=== PATIENT | male | born 1955 | race Caucasian/White ===

== ENCOUNTER 2023-01-27 10:01 | Emergency (ER) | payer MEDICARE, OTHER, SELFPAY ==
[2023-01-27 10:02] VITALS: BP 147/96; PULSE 81; RESP 16; TEMP 36.7; O2SAT 98; BMI 32.1
--- NOTE | 2023-01-27 10:07 | HMH.EDGENADL ---
Discharge Plan Disposition Patient Disposition: Home, Self-Care Prescriptions Prescriptions: New ibuprofen 800 mg tablet 800 mg PO TID PRN (Reason: pain) 7 Days Qty: 20 0RF cyclobenzaprine 5 mg tablet 5 mg PO TID PRN (Reason: muscle spasm) 5 Days Qty: 15 0RF Referrals Follow up/Referrals: Elan Ya MD [Primary Care Provider] - See instructions Activity Restrictions/Add. Instructions Additional Instructions/Restrictions: Your evaluation and work-up for your right lower quadrant abdominal pain was unremarkable including a normal CAT scan normal blood and urine analysis. It is possible that this is musculoskeletal strain will treat with ibuprofen and Flexeril however there remains diagnostic uncertainty no emergent medical condition was identified but please follow with your primary care doctor return with any worsening symptoms as instructed. Clinical Impressions Clinical Impression: Nonspecific abdominal pain Instructions Patient Instructions: DI for Acute Abdominal Pain Discharge ED Provider: Ye Tran General Adult HPI General Chief complaint: Abdominal Pain Stated complaint: lower right side abd pain Time Seen by Provider: 01/27/23 10:07 History of Present Illness HPI narrative: Patient is a 67-year-old male presenting with right lower quadrant abdominal pain. States that he had some vague abdominal discomfort over the past few days also had a very mild rash periumbilically with some pruritus but he felt like that was a [place] thing for [place] poison [place] times. Last night he began having worsening of his abdominal discomfort and stated got to the point where it was severe and has persisted this morning. There is not a significant colicky component to this pain. No fevers or chills no changes in bowel movements or urination. Has not had abdominal surgeries in the past specifically has his appendix still. He has not had a kidney stone in the past and had no hematuria leading up to today. Last meal was last night. Related Data Previous Rx's Medication Instructions Recorded cyclobenzaprine 5 mg tablet 5 mg PO TID PRN muscle spasm 5 01/27/23 days #15 tabs ibuprofen 800 mg tablet 800 mg PO TID PRN pain 7 days #20 01/27/23 tabs Allergies Allergy/AdvReac Type Severity Reaction Status Date / Time No Known Allergies Allergy Verified 01/27/23 10:50 [facility] Disclaimer: The information contained in this section may have been updated after the patient was seen, as this information can be updated by other users. Social History Smoking Status: Current every day smoker alcohol intake: never current occupational status: other Travel in the last 8 weeks: None ROS Obtained: Yes All systems reviewed & no additional complaints except as documented Physical Exam General General appearance: alert and other Respiratory Respiratory exam: Present normal lung sounds bilaterally; Absent respiratory distress Cardiovascular Cardiovascular exam: Present regular rate; Absent tachycardia Abdominal Exam Abdominal exam: Present soft and tenderness (Tenderness right lower quadrant to deep palpation there is no rebound guarding or rigidity negative Rovsing's and obturators) Neurological Exam Neurological exam: Present alert and oriented X3 Medical Decision Making Lele Inquiry Pt receiving controlled substance: No Vital Signs: 01/27/23 10:02 01/27/23 10:30 01/27/23 11:00 Temperature 98.1 F Temperature Source Oral Pulse Rate 71 65 Pulse Rate [Right] 81 Respiratory Rate 16 Blood Pressure 116/79 Blood Pressure [Right Arm] 147/96 H Blood Pressure Mean 91 Blood Pressure Mean [Right Arm] 113 Blood Pressure Source [Right Arm] Automatic Cuff Blood Pressure Position [Right Arm] Sitting 02 Sat by Pulse Oximetry 98 98 96 Oxygen Delivery Method Room Air Room Air 01/27/23 11:45 01/27/23 12:00 [place]
--- NOTE | 2023-01-27 10:12 | CT_ITS ---
FINAL REPORT TECHNIQUE: After the administration of oral and intravenous contrast, axial images were obtained through the abdomen and pelvis by computed tomography. The study was performed with techniques to keep radiation dose as low as reasonably achievable, (ALARA). Individual dose reduction techniques using automated exposure control or adjustment of mA and/or kV according to the patient's size were employed. CLINICAL HISTORY: RLQ abd pain FINDINGS: Abdomen: A calcified granuloma is seen in the left lower lobe. There is mild diffuse fatty infiltration of the liver. The gallbladder is present. The spleen, pancreas, adrenals and kidneys appear unremarkable. The aorta is normal in caliber. There is no free fluid or adenopathy. Pelvis: The appendix is unremarkable. The urinary bladder is unremarkable. There is no free fluid or adenopathy. IMPRESSION: Fatty liver. Otherwise, no acute intra-abdominal abnormality. Reviewed, Interpreted and Dictated by Dimitris Burgos MD Transcribed by Ariana Sullivan Authenticated and [facility]
[2023-01-27 10:23] LABS: Microscopic, Urine URINE MICROSCOPIC (MICROSCOPIC)
[2023-01-27 10:25] LABS: Appearance,Urine CLEAR (Clear); Bilirubin,Urine Negative (Negative); Blood, Urine Negative (Negative); Color,Urine YELLOW (Yellow); Glucose,Urine (UA) Negative (Negative); Ketones,Urine Negative (Negative); Leukocyte Esterase,Urine Negative (Negative); Nitrate,Urine Negative (Negative); PH,Urine 5.5 (5.0-8.5); Protein,Urine TRACE (Negative); Specific Gravity, Urine 1.025 (1.005-1.030)
[2023-01-27 10:30] VITALS: PULSE 71; O2SAT 98
[2023-01-27 10:37] LABS: Squamous Epithelial Cell,Urine Occasional #/hpf (0-5); WBC,Urine Occasional #/hpf (0-3)
[2023-01-27 10:45] LABS: Basophils # 0.1 K/mm3 (0-0.2); Basophils % 1.1 % (0.1-2.0); Eosinophils # 0.4 K/mm3 (0.0-0.4); Eosinophils % 5.8 % (0.1-12.0); Hemoglobin 16.1 g/dL (14.1-18.0); Lymphocytes # 1.6 K/mm3 (0.7-4.5); Lymphocytes % 24.8 % (10-50); Mean Corpuscular HGB Conc 32.9 g/dL (31.8-35.4); Mean Corpuscular Hemoglobin 30.4 pg (27.0-31.2); Mean Corpuscular Volume 92.6 fl (80-94); Mean Platelet Volume 8.1 fl (7.4-10.4); Monocytes # 0.4 K/mm3 (0.1-1.0); Monocytes % 6.3 % (1.7-9.3); Neutrophils # 4.1 K/mm3 (1.8-7.8); Platelet Count 302 K/mm3 (142-424); Red Blood Count 5.29 M/mm3 (4.60-6.20); Red Cell Distribution Width 13.1 % (11.5-17.5); White Blood Count 6.6 K/mm3 (4.8-10.8)
[2023-01-27 10:55] LABS: Chloride 105 mmol/L (98-107); Potassium 4.1 mmoL/L (3.5-5.1); Sodium 138 mmol/L (136-145)
[2023-01-27 10:58] LABS: Alanine Aminotransferase 35 U/L (12-78); Albumin Level 4.1 g/dl (3.5-5.0); Albumin/Globulin Ratio 1.5 (1.1-1.8); Alkaline Phosphatase 70 U/L (38-126); Anion Gap 11.1 mEq/L (5-15); Aspartate Amino Transferase 38 U/L (17-59); Bilirubin,Total 0.9 mg/dl (0.2-1.3); Blood Urea Nitrogen 18 mg/dl (9-20); Calcium 8.9 mg/dl (8.4-10.2); Carbon Dioxide 26 mmol/L (22.0-30.0); Creatinine Clearance Estimated 84 mL/min (50-200); Estimated Glomerular Filt Rate 67 ml/min (>60); GFR (African American) 81 ML/MIN (>60); Globulin 2.7 g/dL (1.3-3.2); Glucose 122 mg/dl (74-100); Total Protein,Serum 6.8 g/dl (6.3-8.2)
[2023-01-27 11:00] VITALS: BP 116/79; PULSE 65; O2SAT 96
--- NOTE | 2023-01-27 11:08 | PC.NURSE ---
Rounded on patient; pt aware that we are waiting on test results, no other needs at this time. family at BS. call hopper within reach
--- NOTE | 2023-01-27 11:13 | PC.NURSE ---
Patient to CT
--- NOTE | 2023-01-27 11:26 | PC.NURSE ---
Patient back from CT
[2023-01-27 11:45] VITALS: BP 116/82; PULSE 55; RESP 16; O2SAT 96
--- NOTE | 2023-01-27 11:45 | PC.NURSE ---
Rounded on patient; call hopper within reach of patient
[2023-01-27 12:00] VITALS: BP 117/73; PULSE 53; O2SAT 94
--- NOTE | 2023-01-27 12:16 | PC.NURSE ---
Pt returned from bathroom. C/o RLQ pain when moving. Denies pain at rest. Deferred additional pain medicine at this time per patients request. Updated patient/friend of plan of care; awaiting CT results. No further complaints at this time.
[2023-01-27 13:09] VITALS: BP 113/83; PULSE 53; RESP 16; TEMP 36.7; O2SAT 97
== END 2023-01-27 13:17 | disposition home or self-care (01) ==
PROVIDERS: Emergency Provider Student in an Organized Health Care Education/Training Program; PCP Family Medicine
DX: R10.31 Right lower quadrant pain (principal); R21 Rash and other nonspecific skin eruption; F17.200 Nicotine dependence, unspecified, uncomplicated
CPT/HCPCS: 74177; 80053; 81001; 85025; 96361; 96374; 96375; 99285; J2405; Q9967